=== PATIENT | female | born 1990 | race Caucasian/White ===

== ENCOUNTER 2020-09-07 20:06 | Emergency (ER) | payer MEDICAID ==
[~2020-09-07] VITALS: Ht 165.1 cm; Wt 103.6 kg
[2020-09-07] MEDS ORDERED: AMOX1TAB15 PO (21:02)
[2020-09-07] MEDS ORDERED: DiphenhydrAMINE HCL 50 MG/ML VIAL IVP STA (22:19)
[2020-09-07] MEDS ORDERED: SODIUM CHLORIDE 0.9% 1,000 ML IV ONE (22:30)
[2020-09-07] MEDS ORDERED: METOCLOPRAMIDE HCL 5 MG/ML 2 ML VIAL IVP ONE (22:30)
[2020-09-07] MEDS ORDERED: DEXAMETHASONE SOD PHOS 4 MG/ML VIAL IVP ONE (22:30)
[2020-09-07] MEDS ORDERED: KETOROLAC TROMETHAMINE 30 MG/ML VIAL IVP ONE (22:30)
[2020-09-07 23:00] VITALS: BP 103/72
[2020-09-07 23:06] LABS: COVID AG,FIA SOURCE NASOPHARYNGEAL
== END 2020-09-07 23:32 | disposition home or self-care (01) ==
LOC: EMS 20:08
DX: K04.7 Periapical abscess without sinus (principal); R51.9 Headache, unspecified; F17.210 Nicotine dependence, cigarettes, uncomplicated; Z20.822 Contact with and (suspected) exposure to COVID-19
CPT/HCPCS: 87426; 96361; 96374; 96375; 99284; J1100; J1200; J1885; J2765; J7030